=== PATIENT | female | born 1965 ===

== ENCOUNTER 2018-05-16 17:32 | Emergency (ER) | payer SELFPAY ==
[2018-05-16] MEDS ORDERED: Sodium Chloride 0.9% 1,000 ML ONE (18:17)
[2018-05-16] MEDS ORDERED: Sodium Chloride 0.9% 1,000 ML IV ONE ×2 (18:24→19:22)
[2018-05-16 18:33] LABS: HEMOGLOBIN 14.1 g/dL (11.0-16.0); MEAN CELL VOLUME 92.6 fL (81.0-99.0); MEAN CORPUSCULAR HEMOGLOBIN 31.3 pg (27.0-31.0); MEAN CORPUSCULAR HGB CONC 33.8 g/dL (33.0-37.0); MEAN PLATELET VOLUME 7.4 fL (7.2-11.7); RBC 4.52 Mil/uL (3.80-5.20); RED CELL DISTRIBUTION WIDTH 12.8 % (11.5-14.5); WHITE BLOOD COUNT 14.3 K/uL (4.8-10.8)
[2018-05-16 18:38] LABS: SQUAMOUS EPITHIAL 5 /hpf (0-5); URINE BACTERIA RARE (<OCC); URINE BILIRUBIN NEGATIVE (NEGATIVE); URINE BLOOD NEGATIVE (NEGATIVE); URINE CLARITY Hazy (Clear); URINE COLOR Yellow (YELLOW); URINE GLUCOSE (UA) NORMAL (Normal); URINE LEUKOCYTE ESTERASE NEG Leu/uL (Negative); URINE PROTEIN NEGATIVE (NEGATIVE); URINE UROBILINOGEN NORMAL mg/dL (0.2-1.0)
[2018-05-16 18:46] LABS: ALB/GLOB RATIO 1.6 (1.0-2.1); ALBUMIN 4.6 g/dL (3.5-5.0); ALT/SGPT 27 U/L (9-52); AST/SGOT 22 U/L (14-36); BLOOD UREA NITROGEN 20 mg/dL (7-17); CALCIUM 9.2 mg/dl (8.6-10.4); GFR NON-AFRICAN AMERICAN > 60; LIPASE 85 U/L (23-300)
--- NOTE | 2018-05-16 19:42 | C.PDOC ---
History Of Present Illness 52 y/o female presents to ED stating that around 11am, she started having epigastric pain, nausea, and 4 episodes of vomiting today. States she thinks she fainted at 4pm but does not know what happened since there were no witnesses. Patient thinks she fainted for 2-3 minutes but is not sure. Denies fever, headache, dizziness, head injuries, fall, or other symptoms. Patient does admit that there is someone sick at home with fever, vomiting, and diarrhea. Time Seen by Provider: 05/16/18 18:41 Chief Complaint (Nursing): Abdominal Pain History Per: Patient History/Exam Limitations: no limitations Onset/Duration Of Symptoms: Hrs Current Symptoms Are (Timing): Still Present Past Medical History Reviewed: Historical Data, Nursing Documentation, Vital Signs Vital Signs: Last Vital Signs Temp 98.7 F 05/16/18 17:44 Pulse 93 H 05/16/18 17:44 Resp 20 05/16/18 17:44 BP 116/71 05/16/18 17:44 Pulse Ox 99 05/16/18 17:44 Family History: States: No Known Family Hx - Social History Hx Alcohol Use: Yes Hx Substance Use: No - Immunization History Hx Tetanus Toxoid Vaccination: No Hx Influenza Vaccination: No Review Of Systems Constitutional: Negative for: Fever Cardiovascular: Negative for: Chest Pain Respiratory: Negative for: Shortness of Breath Gastrointestinal: Positive for: Nausea, Vomiting, Abdominal Pain (epigastric region) Musculoskeletal: Negative for: Neck Pain Neurological: Positive for: Other (LOC). Negative for: Headache, Dizziness Physical Exam - Physical Exam Appears: Non-toxic, No Acute Distress Skin: Warm, Dry Head: Atraumatic, Normacephalic Eye(s): bilateral: Normal Inspection, PERRL, EOMI Oral Mucosa: Moist Neck: Supple Chest: Symmetrical Cardiovascular: Rhythm Regular, No Murmur Respiratory: Normal Breath Sounds, No Rales, No Rhonchi, No Wheezing Gastrointestinal/Abdominal: Soft, No Tenderness Extremity: Bilateral: Atraumatic, Normal Color And Temperature, Normal ROM Neurological/Psych: Oriented x3, Normal Speech ED Course And Treatment - Laboratory Results Result Diagrams: 05/16/18 18:30 05/16/18 18:30 O2 Sat by Pulse Oximetry: 99 (RA) Pulse Ox Interpretation: Normal Medical Decision Making Medical Decision Making: Plan: --EKG --Bloodwork --IV fluids --Zofran 4 mg IV --Urinalysis 18:29 -- EKG: NSR at 89 bpm. Normal intervals. R axis deviation. No ST elevation. On re-evaluation after IV fluid bolus and zofran, patient states that she feels much better. No further syncopal episodes. Results discussed. Will discharge patient with Rx for zofran for nausea. Advised remaining hydrated. Return to the ED for any new or worsening symptoms. Disposition - Disposition Disposition: HOME/ ROUTINE Disposition Time: 22:17 Condition: GOOD Additional Instructions: AZUL CHASE, thank you for letting us take care of you today. Your provider was Alondra Gaming MD and you were treated for VOMITING/ABD PAIN/SYNCOPE. The emergency medical care you received today was directed at your acute symptoms. If you were prescribed any medication, please fill it and take as directed. It may take several days for your symptoms to resolve. Return to the Emergency Department if your symptoms worsen, do not improve, or if you have any other problems. Please contact your doctor or call one of the physicians/clinics you have been referred to that are listed on the Patient Visit Information form that is included in your discharge packet. Bring any paperwork you were given at discharge with you along with any medications you are taking to your follow up visit. Our treatment cannot replace ongoing medical care by a primary care provider outside of the emergency department. Thank you for allowing the [facility] team to be part of your care today. If you had an X-Ray or CT scan: A Radiologist will review the ED reading if any change in treatment is needed we will contact you. If you had a blood, urine, or wound culture: It will take several days for the results, if any change in treatment is needed we will contact you. If you had an STI test: It will take 48 hours for the results. Please call after 1 week if you have not heard back. Prescriptions: Ondansetron ODT [Zofran ODT] 4 mg PO Q8H #9 odt Instructions: Syncope (Fainting) (DC), Viral Gastroenteritis, Adult (DC) Forms: [email or web address] ([place]) - Clinical Impression Clinical Impression: Abdominal pain, Vomiting, Syncope - Scribe Statement The provider has reviewed the documentation as recorded by the Bailey Fitzpatrick Provider Attestation: All medical record entries made by the Bailey were at my direction and personally dictated by me. I have reviewed the chart and agree that the record accurately reflects my personal performance of the history, physical exam, medical decision making, and the department course for this patient. I have also personally directed, reviewed, and agree with the discharge instructions and disposition.
[2018-05-16 20:46] VITALS: TEMP 98.4
[2018-05-16] MEDS ORDERED: Alum-Mag Hydrox-Simethicone Susp (30 mL) PO ONE (21:40)
[2018-05-16] MEDS ORDERED: Alum-Mag Hydrox-Simethicone Susp (30 mL) ONE (21:55)
[2018-05-16 23:07] VITALS: BP 122/72; PULSE 88; RESP 20
[2018-05-17 11:06] VITALS: O2SAT 99
--- NOTE | 2018-05-22 16:59 | CARD ---
APPROVED REPORT Date of service: 05/16/2018 EKG Measurement Heart [id number] <Conclusion> Normal sinus rhythm Rightward axis Nonspecific T wave abnormality Abnormal ECG
== END 2018-05-16 22:50 | disposition home or self-care (01) ==
LOC: C.ER 17:32
DX: R10.9 Unspecified abdominal pain (principal); R11.10 Vomiting, unspecified; R55 Syncope and collapse
CPT/HCPCS: 36415; 80053; 81001; 83690; 84484; 85027; 96374; 99284; J2405; J7030